=== PATIENT | male | born 1965 | race Asian ===

== ENCOUNTER 2019-04-09 12:33 | Day surgery (SDC) | payer BC ==
[~2019-04-09] VITALS: Ht 162.6 cm; Wt 53.6 kg
[2019-04-09] MEDS ORDERED: POLY-IRON 150150 MG (12:44)
[2019-04-09 13:05] LABS: BASO # 0.1 (0.0-0.2); BASO % 1.3 % (0.0-2.0); EOS # 0.2 (0.0-0.7); EOS % 3.1 % (0-4.0); GRAN # 2.6 (1.4-6.5); GRAN % 48.2 % (42.2-75.2); HEMATOCRIT 47.7 % (42.0-52.0); HEMOGLOBIN 16.2 g/dl (13.5-18.0); LYMPH # 2.1 (1.2-3.4); LYMPH % 38.1 % (20.0-51.0); MEAN CELL VOLUME 82 fl (80.0-100.0); MEAN CORPUSCULAR HEMOGLOBIN 28 pg (27.0-31.0); MEAN CORPUSCULAR HGB CONC 34 g/dl (33.0-37.0); MEAN PLATELET VOLUME 9.6 fl (7.4-10.4); MONO # 0.5 (0.1-0.6); MONO % 9.1 % (1.7-9.3); PLATELET COUNT 339 K/mm3 (130-400); RED BLOOD COUNT 5.84 M/mm3 (4.20-5.60); REDCELL DISTRIBUTION WIDTH-CV 13.7 % (11.5-14.5)
[2019-04-09 13:09] LABS: CALCIUM 9.5 mg/dL (8.4-10.2); CREATININE, serum 0.82 (0.66-1.25); POTASSIUM 4.1 mmol/L (3.4-5.0)
[2019-04-09 19:15] VITALS: BP 145/65; PULSE 81; TEMP 98.8
[2019-04-09 19:24] VITALS: BP 145/65; PULSE 81; TEMP 98.6
--- NOTE | 2019-04-09 19:49 | NUR ---
Patient to the floor at 1910. Discharge instructions and education gone over with patient and family. Vitals stable. Patient denies pain. Alert and oriented. IV discontinued. Follow-up appointment with Dr. Sosa at 1000 on 04/10/19. Patient assisted to personal vehicle with family driving by ACADEMIC ADMINISTRATOR with wheelchair at 1955. Scripts sent with patient.
== END 2019-04-09 15:29 | disposition other institution (70) ==
LOC: COL.ER 12:33 → SDCO 12:33 → COL.ER 15:29 → SURG 15:29 → EDSTATUS 15:30 → SURG 18:20 → SDCO 18:20 → SURG 19:45
PROVIDERS: Emergency Medicine
DX: S66.921A Laceration of unspecified muscle, fascia and tendon at wrist and hand level, right hand, initial encounter (principal); W13.2XXS Fall from, out of or through roof, sequela
CPT/HCPCS: J0690; J1100; J1885; J2405; J2704; J3010; J7030; J7120

== ENCOUNTER 2019-07-11 06:07 | Day surgery (SDC) | payer BC ==
[~2019-07-11] VITALS: Ht 165.1 cm; Wt 58.4 kg
[~2019-07-11 06:07] MED LIST: POLY-IRON 150150 MG
[2019-07-11 06:55] VITALS: BP 121/79; PULSE 67; TEMP 97.1
--- NOTE | 2019-07-11 07:06 | NUR ---
TO RM AT 0634- CALL LIGHT IN REACH MOTHER AND FATER AT BEDSIDE.
[2019-07-11] MEDS ORDERED: MEN'S MULTIVIT1 EAC1 PO (07:08)
[2019-07-11] MEDS ORDERED: BOOST HIGH PRO240 ML PO (07:08)
[2019-07-11] MEDS ORDERED: NORCO 325 MG-51 TAB PO (09:55)
[2019-07-11 10:35] VITALS: BP 142/77; PULSE 96; TEMP 97.9
--- NOTE | 2019-07-11 10:35 | NUR ---
TO RM 2 PER CART FROM PACU. ALERT ORIENTED X3,TALKING TO STAFF. DRESSING ON LEFT RING FINGER. SCANT SHADOW DRAINAGE NOTED ON UNDERSIDE OF DRESSING. NO ACTIVE BLEEDING NOTED. DENIES PAIN OR DISCOMFORT. DENIES NAUSEA /VOMITING.
[2019-07-11 10:50] VITALS: BP 142/77; PULSE 94
--- NOTE | 2019-07-11 10:50 | NUR ---
OFFICE CALLED CONCERNING DRESSING CARE AND CHANGES. OFFICE WANTED PATIENT TO COME TO OFFICE UPON DISCHARGE FROM HOSPITAL.
[2019-07-11 11:00] VITALS: BP 130/77; PULSE 89
--- NOTE | 2019-07-11 11:00 | NUR ---
AMBULATED TO BATHROOM VOIDED AND TOLERATED WELL.
--- NOTE | 2019-07-11 11:10 | NUR ---
RECEIVED DISCHARGE INSTRUCTIONS DISCONTINUED IV AND INT
--- NOTE | 2019-07-11 11:25 | NUR ---
DISCHARGED PER WC BY NURSING STAFF TO PRIVATE CAR IN CARE OF PARENTS.
== END 2019-07-11 11:30 | disposition home or self-care (01) ==
LOC: SDCO 06:07
DX: M25.641 Stiffness of right hand, not elsewhere classified (principal); Z96.641 Presence of right artificial hip joint
CPT/HCPCS: J0690; J1885; J2270; J2405; J2704; J3010; J7120